=== PATIENT | female | born 1980 | race Caucasian/White ===

== ENCOUNTER 2016-11-07 14:51 | Emergency (ER) | payer BC ==
--- NOTE | 2016-11-07 14:58 | PDOC ---
History of Present Illness - General History Source: Patient Exam Limitations: No Limitations <Milagros Grullon - Last Filed: 11/07/16 15:17> - General History Source: Patient Exam Limitations: No Limitations - History of Present Illness Initial Comments: 11/07/16 15:41 Patient is a 35 yo female with a significant past medical history of gestational HTN, asthma and recurrent UTI and comes to the ED complaining of dysuria and urinary frequency for one day. The patient describes a burning and itching sensation secondary to urinating. The patient states present symptoms feel similar to that of her hx with UTIs. She reports her last UTI was one year and she was prescribed cipro. Patient also reports high blood pressure earlier today. She denies hematuria, flank pain, and urgency. She denies fever or chills. Brown abdominal pain, nausea, and vomiting. Social hx: The patient is a social drinker. Denies tobacco or drug use. <Dhiraj Henry - Last Filed: 11/07/16 15:43> - General Chief Complaint: Urinary Problem Stated Complaint: UTI SYMPTOMS Time Seen by Provider: 11/07/16 14:57 Past History - Past Medical History Asthma: Yes - Psycho/Social/Smoking Cessation Hx Anxiety: No Suicidal Ideation: No Smoking History: Never smoked Substance Use Type: None <Milagros Grullon - Last Filed: 11/07/16 15:17> <Dhiraj Henry - Last Filed: 11/07/16 15:43> - Past Medical History Allergies/Adverse Reactions: Allergies Allergy/AdvReac Type Severity Reaction Status Date / Time No Known Allergies Allergy Verified 11/07/16 14:55 Home Medications: Ambulatory Orders Sulfamethoxazole/Trimethoprim [Bactrim Ds -] 1 tab PO BID #6 tablet 11/07/16 Review of Systems - Review of Systems Able to Perform ROS?: Yes Comments:: 11/07/16 15:42 GENERAL/CONSTITUTIONAL: No: fever, chills, weakness, loss of appetite. HEAD, EYES, EARS, NOSE AND THROAT: No: change in vision, ear pain, discharge, sore throat, throat swelling. CARDIOVASCULAR: No: chest pain, lightheadedness, palpitations, syncope RESPIRATORY: No: cough, shortness of breath, wheezing, hemoptysis, stridor. GASTROINTESTINAL: No: nausea, vomiting, abdominal cramping, diarrhea, rectal bleeding, constipation. GENITOURINARY: + Dysuria. Frequency No: hematuria, urgency, flank pain. MUSCULOSKELETAL: No: back pain, neck pain, joint pain, muscle swelling or pain SKIN: No: lesions, pallor, rash or easy bruising. NEUROLOGIC: No: headache, vertigo, paresthesias, weakness ENDOCRINE: No: unexplained weight gain or loss HEMATOLOGIC/LYMPHATIC: No: anemia, easy bleeding, swelling nodes <Dhiraj Henry - Last Filed: 11/07/16 15:43> *Physical Exam - Vital Signs Last Vital Signs Temp Pulse Resp BP Pulse Ox 98 F 83 18 141/91 98 11/07/16 14:55 11/07/16 15:40 11/07/16 15:40 11/07/16 15:40 11/07/16 15:40 - Physical Exam Comments: 11/07/16 15:42 GENERAL: The patient is in no acute distress. HEAD: Normal with no signs of trauma. EYES: PERRLA, EOMI, sclera anicteric, conjunctiva clear. ENT: Ears normal, nares patent, oropharynx clear without exudates. Moist mucous membranes. NECK: Normal range of motion, supple without lymphadenopathy, JVD, or masses. LUNGS: Breath sounds equal, clear to auscultation bilaterally. No wheezes, and no crackles. HEART:Regular rate and rhythm, normal S1 and S2 without murmur, rub or gallop. ABDOMEN: + superpubic tenderness. Soft, normoactive bowel sounds. No guarding, no rebound. EXTREMITIES: Normal range of motion, no edema. No clubbing or cyanosis. No erythema, or tenderness. NEUROLOGICAL: Cranial nerves II through XII grossly intact. Normal speech. No focal neurological deficits. MUSCULOSKELETAL: Back nontender to palpation, no CVA tenderness SKIN: Warm, Dry, normal turgor, no rashes or lesions noted. <Dhiraj Henry - Last Filed: 11/07/16 15:43> ED Treatment Course - ADDITIONAL ORDERS Additional order review: Laboratory Results 11/07/16 15:05 Urine Color Yellow Urine Appearance Slightly Urine pH 5.5 Ur Specific [place] 1.020 Urine Protein Trace Urine Glucose (UA) Negative Urine Ketones Negative Urine Blood 2+ H Urine Nitrite Negative Urine Bilirubin Negative Urine Urobilinogen 0.2 Ur Leukocyte Esterase 3+ H Urine RBC 5-10 Urine WBC >100 Ur Epithelial Cells 3-5 <Dhiraj Henry - Last Filed: 11/07/16 15:43> Medical Decision Making - Medical Decision Making 11/07/16 14:57 A portion of this note was documented by scribe services under my direction. I have reviewed the details of the note, within reason, and agree with the documentation with the following case summary and management plan written by me. Nursing documentation reviewed and incorporated into medical decision making This patient is a 35-year-old female with a history of induced hypertension presented to emergency department with a complaint of urinary tract infection symptoms. Symptoms are just beginning She has had these symptoms in the past, last episode last year No fevers or chills No flank pain No hematuria No vaginal discharge Feels like prior uti Was last treated with Cipro 11/07/16 15:17 Laboratory Tests 11/07/16 15:05 Urine Blood 2+ H Urine Nitrite Negative Ur Leukocyte Esterase 3+ H 11/07/16 15:18 11/07/16 15:23 Will discharge on Bactrim Pt is breast feeding Printed information regarding safety <Milagros Grullon - Last Filed: 11/07/16 15:17> *DC/Admit/Observation/Transfer - Discharge Dispostion Admit: No <Milagros Grullon - Last Filed: 11/07/16 15:17> - Attestations Scribe Attestion: 11/07/16 15:43 Documentation prepared by Dhiraj Henry, acting as pediatric medical assistant for Milagros Grullon MD. <Dhiraj Henry - Last Filed: 11/07/16 15:43> Diagnosis at time of Disposition: UTI (urinary tract infection) Qualifiers: Urinary tract infection type: acute cystitis Hematuria presence: without hematuria Qualified Code(s): N30.00 - Acute cystitis without hematuria - Discharge Dispostion Disposition: HOME Condition at time of disposition: Stable - Prescriptions Prescriptions: Sulfamethoxazole/Trimethoprim [Bactrim Ds -] 1 tab PO BID #6 tablet - Patient Instructions Printed Discharge Instructions: DI for Urinary Tract Infection (UTI) Additional Instructions: Ms Graves Thank you for coming in to the ER today Please take medications as prescribed Please monitor yourself for fevers, chills, flank pain, any other new symptoms Please return to the ER for any of those concerns Your urine culture will be done in 2 days If this antibiotic will not work for you, we will call you Follow up with PMD in 1 week
[2016-11-07 14:59] VITALS: TEMP 98; BMI 29.0
[2016-11-07 15:09] LABS: PH,URINE 5.5 (4.5-8); URINE APPEARANCE Slightly; URINE BILIRUBIN Negative (NEGATIVE); URINE GLUCOSE (UA) Negative (NEGATIVE); URINE KETONE Negative (NEGATIVE); URINE NITRITE Negative (NEGATIVE); URINE PROTEIN Trace (NEGATIVE); URINE UROBILINOGEN 0.2 (0.2-1.0)
[2016-11-07 15:14] LABS: URINE BLOOD 2+ (NEGATIVE); URINE COLOR YELLOW; URINE LEUK ESTERASE 3+ (NEGATIVE)
[2016-11-07 15:27] LABS: URINE WBC >100 (3-5)
[2016-11-07 15:41] VITALS: BP 141/91; PULSE 83
== END 2016-11-07 15:41 | disposition home or self-care (01) ==
LOC: FER 14:51
DX: N30.00 Acute cystitis without hematuria (principal); I10 Essential (primary) hypertension; J45.909 Unspecified asthma, uncomplicated
CPT/HCPCS: 81003; 81015; 87086; 87186; 99282-25